=== PATIENT | female | born 1960 | race African-American/Black ===

== ENCOUNTER → 2019-10-15 11:15 | Outpatient (BNVA) | payer OTHER, SELFPAY | PROVIDERS: Visit Provider Internal Medicine Rheumatology | DX: L93.0 Discoid lupus erythematosus (principal); R76.8 Other specified abnormal immunological findings in serum; M19.90 Unspecified osteoarthritis, unspecified site; R60.0 Localized edema | CPT/HCPCS: 36415; 80076; 81001; 82565; 82570; 84156; 85025; 85651; 86140; 86160; 99204 ==

== ENCOUNTER → 2019-11-24 09:37 | Outpatient (BNVA) | payer OTHER, SELFPAY | PROVIDERS: Visit Provider Internal Medicine Rheumatology | DX: L93.0 Discoid lupus erythematosus (principal); M19.90 Unspecified osteoarthritis, unspecified site; R76.0 Raised antibody titer; Z71.89 Other specified counseling; Z79.899 Other long term (current) drug therapy | CPT/HCPCS: 99214 ==

== ENCOUNTER → 2020-01-18 12:06 | Outpatient (BNVA) | payer OTHER, SELFPAY | PROVIDERS: Visit Provider Internal Medicine Rheumatology | DX: L93.0 Discoid lupus erythematosus (principal); Z79.899 Other long term (current) drug therapy; R76.8 Other specified abnormal immunological findings in serum; L93.1 Subacute cutaneous lupus erythematosus; R76.0 Raised antibody titer; M19.90 Unspecified osteoarthritis, unspecified site | CPT/HCPCS: 99214 ==

== ENCOUNTER → 2020-05-15 11:26 | Outpatient (BNVA) | payer OTHER, SELFPAY | PROVIDERS: PCP Obstetrics & Gynecology; Visit Provider Internal Medicine Rheumatology | DX: L93.0 Discoid lupus erythematosus (principal); R76.8 Other specified abnormal immunological findings in serum; Z79.899 Other long term (current) drug therapy; R76.0 Raised antibody titer; M19.90 Unspecified osteoarthritis, unspecified site | CPT/HCPCS: 99214 ==

== ENCOUNTER → 2020-09-13 09:41 | Outpatient (BNVA) | payer OTHER, SELFPAY | PROVIDERS: PCP Obstetrics & Gynecology; Visit Provider Internal Medicine Rheumatology | DX: L93.0 Discoid lupus erythematosus (principal); R76.8 Other specified abnormal immunological findings in serum; Z79.899 Other long term (current) drug therapy; M19.90 Unspecified osteoarthritis, unspecified site; D72.819 Decreased white blood cell count, unspecified | CPT/HCPCS: 99214 ==

== ENCOUNTER → 2020-12-13 08:51 | Outpatient (BNVA) | payer OTHER, SELFPAY | PROVIDERS: PCP Obstetrics & Gynecology; Visit Provider Internal Medicine Rheumatology | DX: L93.0 Discoid lupus erythematosus (principal); R76.8 Other specified abnormal immunological findings in serum; Z79.899 Other long term (current) drug therapy; M19.90 Unspecified osteoarthritis, unspecified site; M54.32 Sciatica, left side; R76.0 Raised antibody titer; R60.0 Localized edema; Z71.89 Other specified counseling | CPT/HCPCS: 99214 ==

== ENCOUNTER → 2023-05-22 13:41 | Outpatient (BNVA) | payer OTHER, SELFPAY | PROVIDERS: PCP Obstetrics & Gynecology; Visit Provider Internal Medicine Rheumatology | DX: Z79.899 Other long term (current) drug therapy (principal); M32.9 Systemic lupus erythematosus, unspecified | CPT/HCPCS: 36415; 80076; 82565; 82657; 85025; 86140 ==

== ENCOUNTER → 2024-01-06 14:15 | Outpatient (BNVA) | payer MEDICARE, SELFPAY | PROVIDERS: PCP Obstetrics & Gynecology; Visit Provider Internal Medicine Rheumatology | DX: L93.0 Discoid lupus erythematosus (principal); R76.0 Raised antibody titer; M19.90 Unspecified osteoarthritis, unspecified site; Z79.899 Other long term (current) drug therapy; Z71.85 Encounter for immunization safety counseling; Z87.891 Personal history of nicotine dependence | CPT/HCPCS: 99214 ==

== ENCOUNTER → 2024-08-24 11:07 | Outpatient (BNVA) | payer MEDICARE, SELFPAY | PROVIDERS: PCP Obstetrics & Gynecology; Visit Provider Internal Medicine Rheumatology | DX: L93.0 Discoid lupus erythematosus (principal); R76.0 Raised antibody titer; M19.90 Unspecified osteoarthritis, unspecified site; Z79.899 Other long term (current) drug therapy; Z71.89 Other specified counseling; M32.9 Systemic lupus erythematosus, unspecified | CPT/HCPCS: 36415; 80076; 82565; 85025; 85651; 86140; 99214 ==

== ENCOUNTER → 2024-12-21 13:54 | Outpatient (BNVA) | payer MEDICARE, SELFPAY | PROVIDERS: PCP Obstetrics & Gynecology; Visit Provider Internal Medicine Rheumatology | DX: L93.0 Discoid lupus erythematosus (principal); R76.0 Raised antibody titer; Z79.899 Other long term (current) drug therapy; M19.90 Unspecified osteoarthritis, unspecified site; Z71.85 Encounter for immunization safety counseling | CPT/HCPCS: 36415; 80076; 82306; 82565; 85025; 85651; 86140; 99214 ==